=== PATIENT | female | born 1955 | race Hispanic/Latino ===

== ENCOUNTER 2019-04-12 00:03 | Emergency (ER) | payer MEDICARE ==
[2019-04-12] MEDS ORDERED: ACETAMINOPHEN 325 MG TAB PO ONE (00:29)
[2019-04-12] MEDS ORDERED: SODIUM CHLORIDE 0.9% 1000 ML IV SOLN IV ONE (00:29)
[2019-04-12] MEDS ORDERED: cefTRIAXone/NS 2 GM/100 ML 2 GM/100 ML BAG IV ONE (00:32)
[2019-04-12] MEDS ORDERED: AZITHROMYCIN 500 MG in SODIUM CHLORIDE 0.9% 250ML 250 ML IV ONE (00:33)
--- NOTE | 2019-04-12 00:45 | Emergency Department Report ---
ED Altered Mental Status HPI - General Chief Complaint: Altered Mental Status Stated Complaint: AMS Time Seen by Provider: 04/12/19 00:29 Source: patient, EMS Mode of arrival: Stretcher Limitations: Altered Mental Status - Related Data Previous Rx's Medication Instructions Recorded Last Taken Type cephALEXin [Keflex] 500 mg PO Q12HR 10 Days #20 cap 04/12/19 Unknown Rx Allergies Allergy/AdvReac Type Severity Reaction Status Date / Time No Known Allergies Allergy Unverified 07/17/15 07:36 ED Review of Systems ROS: Stated complaint: AMS Other details as noted in HPI ED Past Medical Hx - Past Medical History Previous Medical History?: Yes Hx Hypertension: Yes Hx Diabetes: Yes Additional medical history: Afib, lymphoma - Surgical History Past Surgical History?: Yes Hx Internal Defibrillator: Yes Additional Surgical History: melanoma surgery - Social History Smoking Status: Former Smoker Substance Use Type: None - Medications Home Medications: Home Medications Medication Instructions Recorded Confirmed Last Taken Type cephALEXin [Keflex] 500 mg PO Q12HR 10 Days #20 cap 04/12/19 Unknown Rx ED Physical Exam - General Limitations: Altered Mental Status ED Course Vital Signs 04/12/19 04/12/19 04/12/19 00:13 00:15 00:30 Temperature 102.8 F H 102.8 F H Pulse Rate 110 H 88 119 H Respiratory 24 26 H 21 Rate Blood Pressure 100/52 100/56 108/63 Blood Pressure 100/52 [Left] O2 Sat by Pulse 94 92 90 Oximetry 04/12/19 04/12/19 04/12/19 00:45 01:24 01:31 Temperature Pulse Rate 128 H 116 H 126 H Respiratory 23 25 H Rate Blood Pressure 108/63 108/63 108/81 Blood Pressure [Left] O2 Sat by Pulse 96 93 Oximetry 04/12/19 04/12/19 04/12/19 02:00 02:02 02:30 Temperature 99.8 F H Pulse Rate 106 H 107 H Respiratory 10 L 27 H Rate Blood Pressure 90/46 97/53 Blood Pressure [Left] O2 Sat by Pulse 96 97 Oximetry 04/12/19 04/12/19 04/12/19 03:09 03:30 04:00 Temperature Pulse Rate 79 92 H 93 H Respiratory 14 19 Rate Blood Pressure 97/53 98/51 103/58 Blood Pressure [Left] O2 Sat by Pulse 95 94 Oximetry 04/12/19 04/12/19 04:30 04:46 Temperature 98.4 F Pulse Rate 81 Respiratory 16 Rate Blood Pressure 104/54 Blood Pressure [Left] O2 Sat by Pulse 94 Oximetry - Lab Data Result diagrams: 04/12/19 00:26 04/12/19 00:36 Lab Results 04/12/19 04/12/19 04/12/19 Range/Units 00:26 00:26 00:36 WBC 42.9 H* (4.5-11.0) K/mm3 RBC 3.63 L (3.65-5.03) M/mm3 Hgb 10.4 (10.1-14.3) gm/dl Hct 32.6 (30.3-42.9) % MCV 90 (79-97) fl MCH 29 (28-32) pg MCHC 32 (30-34) % RDW 16.5 H (13.2-15.2) % Plt Count 241 (140-440) K/mm3 Lymph % (Auto) [employer] [place] % (Auto) [employer] Eos % (Auto) [employer] Baso % (Auto) [employer] Lymph # [employer] [place] # [employer] Eos # [employer] Baso # [employer] Add Manual Diff Complete Total Counted 200 Seg Neutrophils % [employer] Seg Neuts % (Manual) 88.5 H (40.0-70.0) % Band Neutrophils % 1.0 % Lymphocytes % (Manual) 2.5 L (13.4-35.0) % Reactive Lymphs % (Man) 0.5 % Monocytes % (Manual) 6.0 (0.0-7.3) % Eosinophils % (Manual) 1.5 (0.0-4.3) % Basophils % (Manual) 0 (0.0-1.8) % Metamyelocytes % 0 % Myelocytes % 0 % Promyelocytes % 0 % Blast Cells % 0 % Nucleated RBC % Not Reportable Seg Neutrophils # [employer] Seg Neutrophils # Man 38.0 H (1.8-7.7) K/mm3 Band Neutrophils # 0.4 K/mm3 Lymphocytes # (Manual) 1.1 L (1.2-5.4) K/mm3 Abs React Lymphs (Man) 0.2 K/mm3 Monocytes # (Manual) 2.6 H (0.0-0.8) K/mm3 Eosinophils # (Manual) 0.6 H (0.0-0.4) K/mm3 Basophils # (Manual) 0.0 (0.0-0.1) K/mm3 Metamyelocytes # 0.0 K/mm3 Myelocytes # 0.0 K/mm3 Promyelocytes # 0.0 K/mm3 Blast Cells # 0.0 K/mm3 WBC Morphology Not Reportable Hypersegmented Neuts Not Reportable Hyposegmented Neuts Not Reportable Hypogranular Neuts Not Reportable Smudge Cells Not Reportable Toxic Granulation Not Reportable Toxic Vacuolation Not Reportable Dohle Bodies Not Reportable Pelger-Huet Anomaly Not Reportable Sushant Rods Not Reportable Platelet Estimate Consistent w auto Clumped Platelets Not Reportable Plt Clumps, EDTA Not Reportable Large Platelets Not Reportable Giant Platelets Not Reportable Platelet Satelliting Not Reportable Plt Morphology Comment Not Reportable RBC Morphology Not Reportable Dimorphic RBCs Not Reportable Polychromasia Not Reportable Hypochromasia Not Reportable Poikilocytosis Not Reportable Anisocytosis 1+ Microcytosis Not Reportable Macrocytosis Not Reportable Spherocytes Not Reportable Pappenheimer Bodies Not Reportable Sickle Cells Not Reportable Target Cells Not Reportable Tear Drop Cells Not Reportable Ovalocytes Not Reportable Helmet Cells Not Reportable [place] Bodies Not Reportable [place] Rings Not Reportable [place] Cells Not Reportable Bite Cells Not Reportable Crenated Cell Not Reportable Elliptocytes Not Reportable Acanthocytes (Spur) Not Reportable Rouleaux Not Reportable Hemoglobin C Crystals Not Reportable Schistocytes Not Reportable Malaria parasites Not Reportable [place] Bodies Not Reportable Hem Pathologist Commnt Sent APTT 39.4 H (24.2-36.6) Sec. Sodium 134 L (137-145) mmol/L Potassium 4.7 (3.6-5.0) mmol/L Chloride 95.3 L (98-107) mmol/L Carbon Dioxide 25 (22-30) mmol/L Anion Gap 18 mmol/L BUN 33 H (7-17) mg/dL Creatinine 1.8 H (0.7-1.2) mg/dL Estimated GFR 29 ml/min BUN/Creatinine Ratio 18 % Glucose 205 H (65-100) mg/dL Lactic Acid (0.7-2.0) mmol/L Calcium 9.7 (8.4-10.2) mg/dL Total Bilirubin (0.1-1.2) mg/dL AST (5-40) units/L ALT (7-56) units/L Alkaline Phosphatase (35-129) units/L Total Protein (6.3-8.2) g/dL Albumin (3.9-5) g/dL Albumin/Globulin Ratio % Urine Color (Yellow) Urine Turbidity (Clear) Urine pH (5.0-7.0) Ur Specific Gibbs (1.003-1.030) Urine Protein (Negative) mg/dL Urine Glucose (UA) (Negative) mg/dL Urine Ketones (Negative) mg/dL Urine Blood (Negative) Urine Nitrite (Negative) Urine Bilirubin (Negative) Urine Urobilinogen (<2.0) mg/dL Ur Leukocyte Esterase (Negative) Urine WBC (Auto) (0.0-6.0) /HPF Urine RBC (Auto) (0.0-6.0) /HPF U Epithel Cells (Auto) (0-13.0) /HPF Urine Bacteria (Auto) (Negative) /HPF Urine Mucus /HPF 04/12/19 04/12/19 04/12/19 Range/Units 00:36 00:36 01:32 WBC (4.5-11.0) K/mm3 RBC (3.65-5.03) M/mm3 Hgb (10.1-14.3) gm/dl Hct (30.3-42.9) % MCV (79-97) fl MCH (28-32) pg MCHC (30-34) % RDW (13.2-15.2) % Plt Count (140-440) K/mm3 Lymph % (Auto) [place] % (Auto) Eos % (Auto) Baso % (Auto) Lymph # [place] # Eos # Baso # Add Manual Diff Total Counted Seg Neutrophils % Seg Neuts % (Manual) (40.0-70.0) % Band Neutrophils % % Lymphocytes % (Manual) (13.4-35.0) % Reactive Lymphs % (Man) % Monocytes % (Manual) (0.0-7.3) % Eosinophils % (Manual) (0.0-4.3) % Basophils % (Manual) (0.0-1.8) % Metamyelocytes % % Myelocytes % % Promyelocytes % % Blast Cells % % Nucleated RBC % Seg Neutrophils # Seg Neutrophils # Man (1.8-7.7) K/mm3 Band Neutrophils # K/mm3 Lymphocytes # (Manual) (1.2-5.4) K/mm3 Abs React Lymphs (Man) K/mm3 Monocytes # (Manual) (0.0-0.8) K/mm3 Eosinophils # (Manual) (0.0-0.4) K/mm3 Basophils # (Manual) (0.0-0.1) K/mm3 Metamyelocytes # K/mm3 Myelocytes # K/mm3 Promyelocytes # K/mm3 Blast Cells # K/mm3 WBC Morphology Hypersegmented Neuts Hyposegmented Neuts Hypogranular Neuts Smudge Cells Toxic Granulation Toxic Vacuolation Dohle Bodies Pelger-Huet Anomaly Sushant Rods Platelet Estimate Clumped Platelets Plt Clumps, EDTA Large Platelets Giant Platelets Platelet Satelliting Plt Morphology Comment RBC Morphology Dimorphic RBCs Polychromasia Hypochromasia Poikilocytosis Anisocytosis Microcytosis Macrocytosis Spherocytes Pappenheimer Bodies Sickle Cells Target Cells Tear Drop Cells Ovalocytes Helmet Cells [place] Bodies [place] Rings Casey Cells Bite Cells Crenated Cell Elliptocytes Acanthocytes (Spur) Rouleaux Hemoglobin C Crystals Schistocytes Malaria parasites Joaquín Bodies Hem Pathologist Commnt APTT (24.2-36.6) Sec. Sodium 134 L (137-145) mmol/L Potassium 4.4 (3.6-5.0) mmol/L Chloride 93.9 L (98-107) mmol/L Carbon Dioxide 25 (22-30) mmol/L Anion Gap 20 mmol/L BUN 31 H (7-17) mg/dL Creatinine 1.8 H (0.7-1.2) mg/dL Estimated GFR 29 ml/min BUN/Creatinine Ratio 17 % Glucose 192 H (65-100) mg/dL Lactic Acid 1.40 (0.7-2.0) mmol/L Calcium 9.5 (8.4-10.2) mg/dL Total Bilirubin 0.80 (0.1-1.2) mg/dL AST 14 (5-40) units/L ALT 11 (7-56) units/L Alkaline Phosphatase 134 H (35-129) units/L Total Protein 7.0 (6.3-8.2) g/dL Albumin 3.3 L (3.9-5) g/dL Albumin/Globulin Ratio 0.9 % Urine Color Yellow (Yellow) Urine Turbidity Slightly-cloudy (Clear) Urine pH 5.0 (5.0-7.0) Ur Specific Gibbs 1.019 (1.003-1.030) Urine Protein <15 mg/dl (Negative) mg/dL Urine Glucose (UA) Neg (Negative) mg/dL Urine Ketones Neg (Negative) mg/dL Urine Blood Neg (Negative) Urine Nitrite Neg (Negative) Urine Bilirubin Neg (Negative) Urine Urobilinogen < 2.0 (<2.0) mg/dL Ur Leukocyte Esterase Sm (Negative) Urine WBC (Auto) 14.0 H (0.0-6.0) /HPF Urine RBC (Auto) 6.0 (0.0-6.0) /HPF U Epithel Cells (Auto) 2.0 (0-13.0) /HPF Urine Bacteria (Auto) 1+ (Negative) /HPF Urine Mucus Few /HPF - Medical Decision Making CT findings explained to patient, I recommended admission and the ladder, leukocytosis, UTI, possible empyema, patient refused admission. patient states that she has an appointment today in a couple of hours with her oncologist, she will discussed these matters with him. Critical care attestation.: If time is entered above; I have spent that time in minutes in the direct care of this critically ill patient, excluding procedure time. ED Disposition Clinical Impression: Cancer, Fever complicating acute cystitis Disposition: DC- TO HOME OR SELFCARE Is pt being admited?: No Does the pt Need Aspirin: No Condition: Stable Instructions: Urinary Tract Infection in Women (ED), Fever in Adults (ED), Dysuria (ED) Prescriptions: cephALEXin [Keflex] 500 mg PO Q12HR 10 Days #20 cap Referrals: STEPHANIE TRAN MD [Primary Care Provider] - 3-5 Days
[2019-04-12 00:53] LABS: Hematocrit 32.6 % (30.3-42.9); Hemoglobin 10.4 gm/dl (10.1-14.3); Mean Corpuscular HGB Conc 32 % (30-34); Mean Corpuscular Volume 90 fl (79-97); Platelet Count 241 K/mm3 (140-440); Red Blood Count 3.63 M/mm3 (3.65-5.03); Red Cell Distribution Width 16.5 % (13.2-15.2)
[2019-04-12 01:00] LABS: Calcium 9.7 mg/dL (8.4-10.2)
[2019-04-12 01:08] LABS: Albumin 3.3 g/dL (3.9-5); Calcium 9.5 mg/dL (8.4-10.2)
--- NOTE | 2019-04-12 01:30 | XRay Report ---
CHEST 1 VIEW 1235 INDICATION / CLINICAL INFORMATION: fever. COMPARISON: 07/17/2015 FINDINGS: SUPPORT DEVICES: Pacer appears unchanged. HEART / MEDIASTINUM: There is now significant prominence of the aortic knob region. The aortic knob i s seen with defined lateral border but soft tissue density has increased significantly surrounding th is area and extending to the left. It is difficult to determine whether this is aneurysmal dilatation of a portion of the aortic arch or a mass in this region. LUNGS / PLEURA: Mild atelectasis is seen in the left upper lobe adjacent to the new soft tissue densi ty. Slight atelectasis is seen in the left base. Right lung field is clear. No pneumothorax. ADDITIONAL FINDINGS: No significant additional findings. IMPRESSION: Interval development of prominence in the aortic knob region as above. CTA chest is recom mended. Signer Name: Baron Fowler MD Signed: 04/12/2019 1:25 AM Workstation Name: [id number]
[2019-04-12 01:48] LABS: Bacteria,Urine 1+ /HPF (Negative); Bilirubin,Urine NEG (Negative); Blood,Urine NEG (Negative); Color,Urine Yellow (Yellow); Mucus,Urine FEW /HPF; Protein,Urine <15 mg/dL mg/dL (Negative); Urobilinogen,Urine < 2.0 mg/dL (<2.0)
--- NOTE | 2019-04-12 03:23 | Cat Scan Report ---
CT HEAD WITHOUT CONTRAST INDICATION: Altered mental status TECHNIQUE: All CT scans at this location are performed using CT dose reduction for ALARA by means of automated exposure control. COMPARISON: None available. FINDINGS: BRAIN: No hemorrhage or mass effect are seen. No evidence of acute infarction is noted. Atrophic trujillo ges are noted. ORBITS: Normal as visualized. SOFT TISSUES OF HEAD: Normal. CALVARIUM: Normal. VISUALIZED PARANASAL SINUSES AND MASTOID AIR CELLS: Clear. ADDITIONAL FINDINGS: None. IMPRESSION: No acute intracranial abnormality. Signer Name: Baron Fowler MD Signed: 04/12/2019 3:18 AM Workstation Name: [id number]
[2019-04-12 04:26] LABS: Anisocytosis 1+; Band Neutrophils # (Manual) 0.4 K/mm3; Basophils % (Manual) 0 % (0.0-1.8); Eosinophils % (Manual) 1.5 % (0.0-4.3); Platelet Estimate Consistent w Auto; Total Cells Counted 200
--- NOTE | 2019-04-12 04:33 | Cat Scan Report ---
CT CHEST WITHOUT CONTRAST INDICATION: ABNORMAL CHEST XRAY. HISTORY OF LYMPHOMA, status post 2 weeks partial left pneumonectomy , sepsis CONTRAST: Without IV COMPARISON: Portable chest x-ray tonight All CT scans at this location are performed using CT dose reduction for ALARA by means of automated e xposure control. FINDINGS: Prominent kyphoscoliosis is noted. Chronic changes are seen in the lung coates. Volume loss in the left lower lobe is seen presumably from the recent partial pneumonectomy. A moderate collecti on of mixed density is seen along the posterior medial pleural surface of the left hemithorax immedia tely lateral to the distal aortic arch which accounts for the density seen on chest x-ray. At least p art of this density appears to represent a loculated pleural collection of mixed density fluid and ga s. There may also be tumor involvement in this overall density. The process has a size of 11 x 4.5 x 12.4 cm. This is contiguous with the left hilum where there appears to be moderate adenopathy. Mild m ediastinal anitha prominence is seen. In the anterior medial left hemithorax directly abutting the ple ural surface an ovoid density is seen measuring 3.7 cm in diameter with internal density in the water range. No gas is seen. This probably is a loculated pleural collection is well. A small amount of fr ee flowing pleural effusion is seen on the left. Mild left lower lobe atelectatic changes are noted. No right hilar masses are noted. A pacer is seen. No generalized pneumothorax is noted. Moderate subcutaneous emphysema is seen in the inferior deep left breast and to a lesser degree more inferiorly in the left lateral chest wall. This is not associated with fluid or obvious inflammation. Small amounts of left subdiaphragmatic gas are seen. I do not see generalized pneumoperitoneum and pr obably this is extraperitoneal subdiaphragmatic gas. No associated fluid collection is seen. Liver an d spleen are only partially visualized but appears enlarged. IMPRESSION: 1. The abnormality on chest x-ray The aortic knob is seen to represent a mixed density large collection which may at least partially be due to a loculated collection of fluid and gas though may include some tumor mass, particularly near the left hilum. This may just be residual from surgery though a developing loculated empyema is poss ible. Another small apparent loculated pleural effusion is seen anteriorly without gas. 2. Left hilar lymphadenopathy may relate to patient's known lymphoma. Mild mediastinal anitha prominen ce is seen. 3. Subcutaneous emphysema on the left presumably relates to recent surgery 4. Small amount of probably extraperitoneal subdiaphragmatic gas likely has dissected from the chest and probably relates to prior surgery 5. Hepatosplenomegaly Discussed with Dr. Castaneda Signer Name: Baron Fowler MD Signed: 04/12/2019 4:28 AM Workstation Name: [id number]
[2019-04-12 05:46] VITALS: BP 105/66
== END 2019-04-12 05:15 | disposition home or self-care (01) ==
LOC: ED 00:03
DX: N30.00 Acute cystitis without hematuria (principal); I10 Essential (primary) hypertension; E11.9 Type 2 diabetes mellitus without complications; I48.91 Unspecified atrial fibrillation; Z87.891 Personal history of nicotine dependence; Z79.899 Other long term (current) drug therapy
CPT/HCPCS: 36415; 70450; 71045; 71250; 80048; 80053; 81001; 82140; 85007; 85025; 85730; 87040; 87086; 93005; 93010; 96365; 96367; 99285; J0456; J0696; J7030; J7050